=== PATIENT | female | born 1970 | race Caucasian/White ===

== ENCOUNTER 2017-10-06 19:57 | Emergency (ER) | payer OTHER ==
[~2017-10-06] VITALS: Ht 157.5 cm; Wt 61.2 kg
[2017-10-06 20:45] LABS: ABSOLUTE BASOPHILS 0.1 thou/uL (0.0-0.2); ABSOLUTE EOSINOPHILS 0.1 thou/uL (0.0-0.7); ABSOLUTE LYMPHOCYTES 3.4 thou/uL (0.8-5.3); ABSOLUTE MONOCYTES 0.5 thou/uL (0.0-1.2); ABSOLUTE NEUTROPHILS 5.5 thou/uL (1.6-8.1); EOSINOPHILS 1.3 %; HEMATOCRIT 45.7 % (37.0-47.0); HEMOGLOBIN 15.8 gm/dL (12.0-15.0); LYMPHOCYTES 35.1 %; MCH 33.8 pg (26.0-34.0); MCHC 34.6 g/dL (28.0-37.0); MCV 97.8 fL (80.0-100.0); MONOCYTES 5.4 %; MPV 7.4 fl. (7.2-11.1); NUCLEATED RBCS 0 /100WBC; PLATELET COUNT* 280 thou/uL (150-400); POLYS 57.2 %; RBC 4.67 mil/uL (4.20-5.00); RDW-CV 14.1 % (10.5-14.5); WBC 9.6 thou/uL (4.0-11.0)
[2017-10-06 21:04] LABS: ANION GAP 10 mmol/L (7-16); BUN 10 mg/dL (7-18); CALCIUM 8.5 mg/dL (8.5-10.1); CHLORIDE 102 mmol/L (98-107); CO2 27 mmol/L (21-32); CREATININE 0.8 mg/dL (0.6-1.3); GLUCOSE 101 mg/dL (70-99); POTASSIUM 3.5 mmol/L (3.5-5.1); SODIUM 139 mmol/L (136-145)
[2017-10-06 21:11] LABS: ALBUMIN 3.5 g/dL (3.4-5.0); ALKALINE PHOSPHATASE 58 U/L (46-116); LIPASE 152 U/L (73-393); SGOT 14 U/L (15-37); SGPT 26 U/L (30-65); TOTAL BILIRUBIN 0.4 mg/dL (<0.1-1.0); TOTAL PROTEIN 7.2 g/dL (6.4-8.2); TROPONIN-I LEVEL <0.06 ng/mL (<0.06)
[2017-10-06] MEDS ORDERED: NAPROSYN500 MG PO (23:03)
[2017-10-06 23:15] VITALS: BP 123/79
--- NOTE | 2017-10-07 13:59 | EKG ---
[place] [address] ELECTROCARDIOGRAM REPORT Name: BLAINE CAVANAUGH Room: [facility]#: [id number] Admission: 10/06/17 Attend Phys: Discharge: 10/06/17 Date of : 66 Report #: [id number] THIS REPORT FOR: //name// [facility] ED Test Date: 2017-10-06 Test Time: 20:42:06 Pat Name: BLAINE CAVANAUGH Department: Room: Gender: F Qualitative Field Coordinator: PREET : 1970 Requested By: Jamila Gamboa Order Number: [id number] MD: Mirza Morse Measurements Intervals [place] Rate: 83 P: 45 HI: 130 QRS: 82 QRSD: 93 T: 45 QT: 351 QTc: 413 Interpretive Statements Sinus rhythm No previous ECG available for comparison Electronically Signed On 10-07-2017 13:59:06 CDT by Mirza Morse [email or web address] <ELECTRONICALLY SIGNED> By: Mirza Morse MD, [facility] 10/07/17 1359 [id number] 41 Mirza Morse MD, FACC /EPI
== END 2017-10-06 23:16 | disposition home or self-care (01) ==
LOC: M.ERS 19:57
PROVIDERS: Personal Emergency Response Attendant
DX: R07.89 Other chest pain (principal); F17.200 Nicotine dependence, unspecified, uncomplicated

== ENCOUNTER → 2019-07-05 | Outpatient (CLI) | payer OTHER ==
[~2019-07-05] MED LIST: NAPROSYN500 MG PO
== END ==
LOC: M.RAD 13:28
DX: Z12.31 Encounter for screening mammogram for malignant neoplasm of breast (principal)